=== PATIENT | female | born 1995 | race Caucasian/White ===

== ENCOUNTER 2020-12-25 11:50 | Emergency (ER) | payer BC, OTHER ==
[2020-12-25] MEDS ORDERED: IBUPROFEN800 MG PO (13:25)
[2020-12-25] MEDS ORDERED: PENVEE K 500 M500 MG PO (13:25)
== END 2020-12-25 13:48 | disposition home or self-care (01) ==
LOC: ER1 11:50
DX: K04.7 Periapical abscess without sinus (principal)
CPT/HCPCS: 99282